=== PATIENT | female | born 1960 | race African-American/Black ===

== ENCOUNTER 2018-03-04 17:15 | Emergency (ER) | payer OTHER ==
[~2018-03-04] VITALS: Ht 172.7 cm; Wt 97.5 kg
[~2018-03-04 17:15] MED LIST: CEFDINIR300 MG PO; MUCINEX600 MG PO; NEBULIZER MISCELL; PREDNISONE 10 M10 MG PO; VENTOLIN HFA 1818 GM INH
[2018-03-04 17:47] LABS: URINE CLARITY CLEAR; URINE COLOR YELLOW
[2018-03-04 17:48] LABS: URINE BILIRUBIN NEGATIVE (Negative); URINE GLUCOSE-RANDOM* TRACE (Negative); URINE KETONES NEGATIVE (Negative); URINE LEUKOCYTES-REFLEX NEGATIVE (Negative); URINE NITRITE-REFLEX NEGATIVE (Negative); URINE UROBILINOGEN 0.2 E.U./dl (0.2-1.0)
[2018-03-04 17:53] LABS: URINE BLOOD NEGATIVE (Negative)
[2018-03-04 17:54] LABS: URINE PROTEIN (DIPSTICK) NEGATIVE (Negative)
[2018-03-04 19:07] LABS: ABSOLUTE NEUTROPHILS 4.9 thou/uL (1.4-8.2); BASOPHILS 0.7 % (0.0-2.0); EOSINOPHILS 0.9 % (0.0-3.0); HEMATOCRIT 40.9 % (37.0-47.0); HEMOGLOBIN 14.2 gm/dL (12.0-15.0); LYMPHOCYTES 32.4 % (24.0-44.0); MCH 29.6 pg (26.0-34.0); MCHC 34.6 g/dL (28.0-37.0); MCV 85.5 fL (80.0-100.0); MONOCYTES 6.8 % (1.0-8.0); PLATELET COUNT 287 thou/uL (150-400); POLYS 59.2 % (36.0-66.0); RBC 4.79 mil/uL (4.20-5.00); RDW 13.1 % (10.5-14.5); WBC 8.2 thou/uL (4.0-11.0)
[2018-03-04 19:15] LABS: ANION GAP 8 mmol/L (7-16); BUN 9 mg/dL (7-18); CALCIUM 9.3 mg/dL (8.5-10.1); CHLORIDE 98 mmol/L (98-107); CO2 30 mmol/L (21-32); CREATININE 0.9 mg/dL (0.6-1.0); GLUCOSE 102 mg/dL (74-106); SODIUM 136 mmol/L (136-145)
[2018-03-04 19:23] LABS: ALBUMIN 3.3 g/dL (3.4-5.0); MAGNESIUM 1.9 mg/dL (1.8-2.4); SGOT 14 U/L (15-37); SGPT 18 U/L (30-65); TOTAL BILIRUBIN 0.4 mg/dL (<0.1-1.0); TOTAL PROTEIN 8.6 g/dL (6.4-8.2); TROPONIN-I <0.06 ng/mL (<0.06)
[2018-03-04 19:33] LABS: POTASSIUM 2.7 mmol/L (3.5-5.1)
[2018-03-04] MEDS ORDERED: POTASSIUM20 PO (20:30)
[2018-03-04] MEDS ORDERED: AZITHROMYCIN 2250 MG PO (20:30)
[2018-03-04] MEDS ORDERED: HYDROCHLOROTH12.5 M2 PO (20:49)
--- NOTE | 2018-03-04 21:07 | EKG ---
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
[2018-03-04 22:08] VITALS: BP 125/83
== END 2018-03-04 22:08 | disposition home or self-care (01) ==
LOC: ER 17:15
PROVIDERS: Emergency Medicine
DX: J20.9 Acute bronchitis, unspecified (principal); Z88.1 Allergy status to other antibiotic agents; Z88.2 Allergy status to sulfonamides; Z98.890 Other specified postprocedural states

== ENCOUNTER 2020-10-29 19:30 | Emergency (ER) | payer OTHER ==
[~2020-10-29] VITALS: Ht 172.7 cm; Wt 88.0 kg
[~2020-10-29 19:30] MED LIST changes: +AZITHROMYCIN 2250 MG PO; +HYDROCHLOROTH12.5 M2 PO; +POTASSIUM20 PO
[2020-10-29 20:42] LABS: ABSOLUTE NEUTROPHILS 3.5 thou/uL (1.4-8.2); BASOPHILS 0.4 % (0.0-2.0); EOSINOPHILS 1.2 % (0.0-3.0); HEMATOCRIT 40.6 % (37.0-47.0); HEMOGLOBIN 13.4 gm/dL (12.0-15.0); MCH 28.7 pg (26.0-34.0); MCV 86.9 fL (80.0-100.0); MONOCYTES 4.3 % (1.0-8.0); PLATELET COUNT 308 thou/uL (150-400); POLYS 68.1 % (36.0-66.0); RBC 4.67 mil/uL (4.20-5.00); RDW 12.9 % (10.5-14.5); WBC 5.2 thou/uL (4.0-11.0)
[2020-10-29 20:45] LABS: CALCIUM 9.4 mg/dL (8.5-10.1); CREATININE 1.1 mg/dL (0.6-1.0); POTASSIUM 3.8 mmol/L (3.5-5.1)
[2020-10-29 21:05] LABS: BE(vivo) 4.4 mmol/L (-2 to +3); HCO3 30.6 mmol/L (22.0-26.0); PCO2 52.1 mmHg (35.0-45.0); PO2 90.8 mmHg (80.0-100.0); pH 7.387 (7.360-7.450); sO2 96.7 % (92.0-98.0)
[2020-10-29 21:06] LABS: ALBUMIN 3.3 g/dL (3.4-5.0); TOTAL BILIRUBIN 0.2 mg/dL (0.2-1.0); TOTAL PROTEIN 8.4 g/dL (6.4-8.2)
[2020-10-29] MEDS ORDERED: PREDNISONE 20 M20 MG PO (21:20)
[2020-10-29] MEDS ORDERED: FLUTICASONE PRO16 GM NASAL (21:20)
[2020-10-29] MEDS ORDERED: SPIRIVA RESPIMAT4 G1 INH (21:21)
[2020-10-29] MEDS ORDERED: ZPAK PO (22:07)
[2020-10-29 22:18] VITALS: BP 120/79
--- NOTE | 2020-10-30 11:30 | EKG ---
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 : 1960 Requested By: Tres Warner Order Number: [id number] MD: Chuy Silverman Measurements Intervals [place] Rate: 90 P: 106 MA: 186 QRS: 154 QRSD: 91 T: 124 QT: 362 QTc: 443 Interpretive Statements Right and left arm electrode reversal, interpretation assumes no reversal Sinus rhythm Probable left atrial enlargement Right axis deviation Baseline wander in lead(s) V1 Compared to ECG 03/04/2018 18:19:33 Right-axis deviation now present Electronically Signed On 10-30-2020 11:30:30 CDT by Chuy Silverman [email or web address] <ELECTRONICALLY SIGNED> By: Chuy Silverman MD 10/30/20 1130 14 14 Chuy Silverman MD /NADEEN
== END 2020-10-29 23:13 | disposition home or self-care (01) ==
LOC: ER 19:30
PROVIDERS: Emergency Medicine
DX: J44.1 Chronic obstructive pulmonary disease with (acute) exacerbation (principal); Z20.822 Contact with and (suspected) exposure to COVID-19; J20.8 Acute bronchitis due to other specified organisms; Z79.899 Other long term (current) drug therapy; Z88.0 Allergy status to penicillin; Z88.2 Allergy status to sulfonamides